=== PATIENT | female | born 1935 | race Caucasian/White ===

== ENCOUNTER 2016-08-26 07:44 | Day surgery (SDC) | payer OTHER ==
[~2016-08-26] VITALS: Ht 160 cm; Wt 67.6 kg
[~2016-08-26 07:44] MED LIST: ACTOS15 MG PO; ALDACTONE100 MG PO; ASCORBIC ACID500 M3 PO; Ascorbic Acid,Ester- PO; BENTYL20 MG PO; BYSTOLIC10 MG PO; CALCIUM CARBON600 M1 PO; CALTRATE 600 +1 EAC1 PO; CALTRATE-600 W1 EAC1 PO; COUMADIN PO; COUMADIN6 MG PO; FEOSOL325 MG PO; GLUCOPHAGE500 MG PO; GLUCOPHAGE850 MG PO; Glucophage PO; LASIX20 MG PO; LASIX40 MG PO; LIPITOR40 MG PO; LUTEIN PO; Lasix PO; Levothroid,Synthroid PO; MARTINIC1 EACH PO; NORVASC10 MG PO; NORVASC5 MG PO; OCCUVITE PO; OCUVITE LUTEIN1 EACH PO; OCUVITE1 TABLET PO; PYRIDOXINE,VITA50 MG PO; RANITIDINE HCL150 MG PO; SYNTHROID125 MCG PO; THERAGRAN1 TABLET PO; TRADJENTA5 MG PO; TUMS500 MG PO; TYLENOL EXTRA500 MG PO; VITAMIN B-122500 MCG SL; VITAMIN B-650 MG PO; VITAMIN B12 PO; VITAMIN D1000 INTUN PO; VITAMIN D31000 UNI2 PO; VITAMIN E400 UNIT PO; Vitamin-E PO; WARFARIN PO; WARFARIN SODIUM1 MG PO; ZESTRIL20 MG PO; Zestril,Prinivil PO; Zocor PO
[2016-08-26 09:21] LABS: POINT-OF-CARE METER ID UU14174212
[2016-08-26 09:27] VITALS: BP 163/72
[2016-08-26 09:32] LABS: INTER. NORMALIZED RATIO 2.8
[2016-08-26 12:36] LABS: POINT-OF-CARE METER ID UU13113675
[2016-08-26 13:33] VITALS: BP 152/75
[2016-08-26 14:30] VITALS: BP 172/72
== END 2016-08-26 14:43 | disposition home or self-care (01) ==
LOC: SDC 07:44
PROVIDERS: Ophthalmology
PROC: 08B43ZZ Excision of Right Vitreous, Percutaneous Approach (ICD-10-PCS; principal; 2016-08-26)
DX: H43.11 Vitreous hemorrhage, right eye (principal); H35.61 Retinal hemorrhage, right eye; T45.515A Adverse effect of anticoagulants, initial encounter; J44.9 Chronic obstructive pulmonary disease, unspecified; I51.7 Cardiomegaly; Z95.0 Presence of cardiac pacemaker; I49.5 Sick sinus syndrome; I48.0 Paroxysmal atrial fibrillation; I10 Essential (primary) hypertension; I65.29 Occlusion and stenosis of unspecified carotid artery; E78.5 Hyperlipidemia, unspecified; E11.9 Type 2 diabetes mellitus without complications; M19.90 Unspecified osteoarthritis, unspecified site; Z85.3 Personal history of malignant neoplasm of breast; Z79.01 Long term (current) use of anticoagulants
CPT/HCPCS: 71020; 82948; 85610; J0690; J0713; J2795; J3010; J3300

== ENCOUNTER 2017-01-22 02:58 | Inpatient (IN) | payer OTHER ==
[~2017-01-22] VITALS: Ht 160 cm; Wt 68.1 kg
[~2017-01-22 02:58] MED LIST changes: +COUMADIN2 MG PO
[2017-01-22 06:38] LABS: HEMATOCRIT 31.1 % (36.0-46.0); MCH 29.4 PG (29.0-34.0); MCHC 32.5 G/DL (30.0-36.0); MCV 90.7 FL (83-99); MEAN PLAT.VOLUME 10.4 uM^3 (9.5-12.4); PLATELET COUNT 129 K/uL (156-360); RBC DIS.WIDTH-CV 16.2 % (11.8-14.6); RBC DIS.WIDTH-SD 53.3 % (39-53); RED BLOOD COUNT 3.43 M/uL (3.80-5.20); WHITE BLOOD COUNT 5.1 K/uL (4.1-10.2)
[2017-01-22 06:51] LABS: INTER. NORMALIZED RATIO 2.9; PROTHROMBIN TIME 33.6 SEC (10.2-12.9)
[2017-01-22 07:06] VITALS: BP 146/80
[2017-01-22 07:12] LABS: ALKALINE PHOSPHATASE 103 IU/L (3-129); ANION GAP 12 MEQ/L (2-14); CHLORIDE 101 MEQ/L (99-109); DIRECT BILIRUBIN 0.2 mg/dL (0.0-0.3); GFR ESTIMATE (CALCULATED) 20 mL/min/; GLUCOSE 133 mg/dL (70-99); MAGNESIUM 2.1 mg/dl (1.3-2.7); POTASSIUM 4.6 MEQ/L (3.7-5.4); SAMPLE HEMOLYSIS CHECK 0; SAMPLE ICTERIC CHECK 0; SAMPLE LIPEMIA CHECK 0; SODIUM 135 MEQ/L (136-147); UREA NITROGEN (BUN) 72 mg/dL (9-23)
[2017-01-22 07:48] VITALS: BP 145/66
[2017-01-22] MEDS ORDERED: COUMADIN2 MG PO (11:56)
[2017-01-22 12:00] VITALS: BP 120/65
[2017-01-22] MEDS ORDERED: FERROUS SULFAT325 MG PO (12:03)
[2017-01-22] MEDS ORDERED: PANTOPRAZOLE SO40 MG PO (12:04)
[2017-01-22] MEDS ORDERED: LACTULOSE10 GM/151 PO (12:05)
[2017-01-22 12:50] LABS: POINT-OF-CARE METER ID UU13113717
[2017-01-22 16:05] VITALS: BP 139/65
[2017-01-22 17:23] LABS: POINT-OF-CARE METER ID UU13113717
[2017-01-22 19:28] VITALS: BP 128/71
[2017-01-22 23:24] VITALS: BP 135/64
[2017-01-23 03:45] VITALS: BP 134/69
[2017-01-23 06:31] LABS: HEMATOCRIT 28.3 % (36.0-46.0); MCH 28.3 PG (29.0-34.0); MCHC 31.4 G/DL (30.0-36.0); MCV 90.1 FL (83-99); MEAN PLAT.VOLUME 10.8 uM^3 (9.5-12.4); PLATELET COUNT 109 K/uL (156-360); RBC DIS.WIDTH-SD 52.5 % (39-53); RED BLOOD COUNT 3.14 M/uL (3.80-5.20); WHITE BLOOD COUNT 4.7 K/uL (4.1-10.2)
[2017-01-23 06:42] LABS: INTER. NORMALIZED RATIO 2.6; PROTHROMBIN TIME 29.4 SEC (10.2-12.9)
[2017-01-23 06:45] LABS: PTT 39.3 SEC (25-37)
[2017-01-23 06:56] LABS: ALKALINE PHOSPHATASE 78 IU/L (3-129); ANION GAP 11 MEQ/L (2-14); CHLORIDE 102 MEQ/L (99-109); GFR ESTIMATE (CALCULATED) 20 mL/min/; GLUCOSE 132 mg/dL (70-99); POTASSIUM 4.3 MEQ/L (3.7-5.4); SAMPLE HEMOLYSIS CHECK 0; SAMPLE ICTERIC CHECK 0; SAMPLE LIPEMIA CHECK 0; SODIUM 134 MEQ/L (136-147); UREA NITROGEN (BUN) 71 mg/dL (9-23)
[2017-01-23 06:58] LABS: ANION GAP 11 MEQ/L (2-14); CHLORIDE 102 MEQ/L (99-109); GFR ESTIMATE (CALCULATED) 20 mL/min/; GLUCOSE 135 mg/dL (70-99); POTASSIUM 4.2 MEQ/L (3.7-5.4); SAMPLE HEMOLYSIS CHECK 0; SAMPLE ICTERIC CHECK 0; SAMPLE LIPEMIA CHECK 0; SODIUM 133 MEQ/L (136-147); UREA NITROGEN (BUN) 75 mg/dL (9-23)
[2017-01-23 07:47] LABS: POINT-OF-CARE METER ID UU13113717
[2017-01-23 07:53] VITALS: BP 120/56
[2017-01-23 11:21] VITALS: BP 118/59
[2017-01-23 12:11] LABS: POINT-OF-CARE METER ID UU14188625
[2017-01-23 15:38] VITALS: BP 125/66
[2017-01-23 17:43] LABS: POINT-OF-CARE METER ID UU14174225
[2017-01-23 19:00] LABS: ADD MIUA? NO; BILIRUBIN NEGATIVE; BLOOD NEGATIVE; COLOR STRAW ((YELLOW)); GLUCOSE (STRIP) NEGATIVE; KETONES NEGATIVE; LEUKOCYTES NEGATIVE; NITRITE NEGATIVE; PROTEIN (STRIP) NEGATIVE; SPECIFIC GRAVITY 1.005 (1.000-1.030); UROBILINOGEN 0.2 MG/DL (0.2-1.0)
[2017-01-23 19:34] VITALS: BP 118/60
[2017-01-23 20:52] LABS: POINT-OF-CARE METER ID UU14188625
[2017-01-23 23:47] VITALS: BP 125/58
[2017-01-24] VITALS (7 sets, daily range): BP systolic 105–131; BP diastolic 56–86
[2017-01-24 05:59] LABS: INTER. NORMALIZED RATIO 2.2; PROTHROMBIN TIME 25.4 SEC (10.2-12.9)
[2017-01-24 06:04] LABS: HEMATOCRIT 27.6 % (36.0-46.0); MCH 28.6 PG (29.0-34.0); MCHC 31.9 G/DL (30.0-36.0); MCV 89.6 FL (83-99); MEAN PLAT.VOLUME 9.9 uM^3 (9.5-12.4); PLATELET COUNT 118 K/uL (156-360); RBC DIS.WIDTH-CV 16.1 % (11.8-14.6); RBC DIS.WIDTH-SD 52.5 % (39-53); RED BLOOD COUNT 3.08 M/uL (3.80-5.20); WHITE BLOOD COUNT 4.4 K/uL (4.1-10.2)
[2017-01-24 06:40] LABS: ANION GAP 11 MEQ/L (2-14); CHLORIDE 102 MEQ/L (99-109); GFR ESTIMATE (CALCULATED) 20 mL/min/; GLUCOSE 126 mg/dL (70-99); IRON 32 MCG/DL (35-150); POTASSIUM 4.3 MEQ/L (3.7-5.4); SAMPLE HEMOLYSIS CHECK 0; SAMPLE ICTERIC CHECK 0; SAMPLE LIPEMIA CHECK 0; SODIUM 134 MEQ/L (136-147); UREA NITROGEN (BUN) 72 mg/dL (9-23)
[2017-01-24 06:57] LABS: URIC ACID 7.8 mg/dL (3.1-9.2)
[2017-01-24 07:34] LABS: POINT-OF-CARE METER ID UU14174225
[2017-01-24 11:33] LABS: POINT-OF-CARE METER ID UU13113717
[2017-01-24 16:49] LABS: POINT-OF-CARE METER ID UU14174225
[2017-01-25 04:05] VITALS: BP 140/66
[2017-01-25 06:00] LABS: EOSINOPHIL (%) 7.6 % (0-5); EOSINOPHIL COUNT 0.4 K/uL (0-0.3); HEMATOCRIT 29.4 % (36.0-46.0); IMMATURE GRANULOCYTE (%) 0.6 % (0.0-0.7); INSTRUMENT ABS NEUTROPHIL CT 3.5 K/uL; LYMPHOCYTE COUNT 0.3 K/uL (1.0-2.8); MCH 28.7 PG (29.0-34.0); MCV 89.6 FL (83-99); MEAN PLAT.VOLUME 10.4 uM^3 (9.5-12.4); MONOCYTE (%) 12.2 % (3-12); MONOCYTE COUNT 0.6 K/uL (0-0.8); NEUTROPHIL (%) 73.9 % (45-76); NEUTROPHIL COUNT 3.5 K/uL (1.8-6.4); PLATELET COUNT 129 K/uL (156-360); RBC DIS.WIDTH-CV 16.2 % (11.8-14.6); RBC DIS.WIDTH-SD 52.8 % (39-53); RED BLOOD COUNT 3.28 M/uL (3.80-5.20); WHITE BLOOD COUNT 4.8 K/uL (4.1-10.2)
[2017-01-25 06:19] LABS: INTER. NORMALIZED RATIO 1.9; PROTHROMBIN TIME 21.7 SEC (10.2-12.9)
[2017-01-25 06:26] LABS: ANION GAP 12 MEQ/L (2-14); CHLORIDE 102 MEQ/L (99-109); GFR ESTIMATE (CALCULATED) 21 mL/min/; GLUCOSE 130 mg/dL (70-99); POTASSIUM 4.5 MEQ/L (3.7-5.4); SAMPLE HEMOLYSIS CHECK 0; SAMPLE ICTERIC CHECK 0; SAMPLE LIPEMIA CHECK 0; SODIUM 135 MEQ/L (136-147); UREA NITROGEN (BUN) 82 mg/dL (9-23)
[2017-01-25 07:40] VITALS: BP 127/59
[2017-01-25 10:52] LABS: TYPE OF FLUID PARACENTESIS
[2017-01-25 11:29] LABS: BODY FLUID EOSINOPHILS 0 % (0-25); BODY FLUID RBC'S 2000 /MM^3 (0-100); BODY FLUID WBC'S 226 /MM^3 (0-500); MONONUCLEAR WBC'S 47 %; POLYNUCLEAR WBC'S 53 % (0-25)
[2017-01-25 11:39] VITALS: BP 138/65
[2017-01-25 11:53] LABS: POINT-OF-CARE METER ID UU14174225
[2017-01-25 11:54] LABS: BODY FLUID LDH 107 IU/L
[2017-01-25 15:19] VITALS: BP 113/58
[2017-01-25 20:12] VITALS: BP 123/45
[2017-01-25 23:57] VITALS: BP 124/46
[2017-01-26 03:43] VITALS: BP 117/48
[2017-01-26 06:47] LABS: EOSINOPHIL (%) 8.2 % (0-5); EOSINOPHIL COUNT 0.4 K/uL (0-0.3); HEMATOCRIT 28.1 % (36.0-46.0); IMMATURE GRANULOCYTE (%) 0.4 % (0.0-0.7); INSTRUMENT ABS NEUTROPHIL CT 3.4 K/uL; LYMPHOCYTE COUNT 0.3 K/uL (1.0-2.8); MCH 30.1 PG (29.0-34.0); MCHC 33.5 G/DL (30.0-36.0); MCV 90.1 FL (83-99); MEAN PLAT.VOLUME 10.2 uM^3 (9.5-12.4); MONOCYTE (%) 11.4 % (3-12); MONOCYTE COUNT 0.5 K/uL (0-0.8); NEUTROPHIL (%) 72.9 % (45-76); NEUTROPHIL COUNT 3.4 K/uL (1.8-6.4); PLATELET COUNT 119 K/uL (156-360); RBC DIS.WIDTH-CV 16.5 % (11.8-14.6); RBC DIS.WIDTH-SD 53.5 % (39-53); RED BLOOD COUNT 3.12 M/uL (3.80-5.20); WHITE BLOOD COUNT 4.7 K/uL (4.1-10.2)
[2017-01-26 07:07] LABS: INTER. NORMALIZED RATIO 1.7; PROTHROMBIN TIME 19.5 SEC (10.2-12.9)
[2017-01-26 07:12] LABS: ANION GAP 12 MEQ/L (2-14); CHLORIDE 103 MEQ/L (99-109); GFR ESTIMATE (CALCULATED) 20 mL/min/; GLUCOSE 125 mg/dL (70-99); POTASSIUM 4.7 MEQ/L (3.7-5.4); SAMPLE HEMOLYSIS CHECK 0; SAMPLE ICTERIC CHECK 0; SAMPLE LIPEMIA CHECK 0; SODIUM 137 MEQ/L (136-147); UREA NITROGEN (BUN) 77 mg/dL (9-23)
[2017-01-26 07:45] VITALS: BP 121/63
[2017-01-26 11:59] VITALS: BP 125/60
[2017-01-26] MEDS ORDERED: SPIRONOLACTONE50 MG PO (13:34)
[2017-01-26] MEDS ORDERED: BUMETANIDE1 MG PO (13:42)
[2017-01-27 23:57] LABS: BODY FLUID PH 8.1 (())
== END 2017-01-26 15:16 | disposition home health service (06) | DRG 291 ==
LOC: EME 02:58 → EDOF 05:04 → ENRESERV 05:07 → 5SOUTH 06:11
PROVIDERS: Hospitalist; Internal Medicine; Internal Medicine Nephrology
PROC: 0W9G3ZZ Drainage of Peritoneal Cavity, Percutaneous Approach (ICD-10-PCS; principal; 2017-01-25)
DX: I13.0 Hypertensive heart and chronic kidney disease with heart failure and stage 1 through stage 4 chronic kidney disease, or unspecified chronic kidney disease (principal); N17.9 Acute kidney failure, unspecified; R18.8 Other ascites; I27.2 Other secondary pulmonary hypertension; E11.22 Type 2 diabetes mellitus with diabetic chronic kidney disease; E87.1 Hypo-osmolality and hyponatremia; I49.5 Sick sinus syndrome; N18.3 Chronic kidney disease, stage 3 (moderate); I50.31 Acute diastolic (congestive) heart failure; E03.9 Hypothyroidism, unspecified; E78.2 Mixed hyperlipidemia; D63.1 Anemia in chronic kidney disease; K76.1 Chronic passive congestion of liver; I48.91 Unspecified atrial fibrillation; Z79.01 Long term (current) use of anticoagulants; Z95.0 Presence of cardiac pacemaker; Z79.4 Long term (current) use of insulin; Z79.899 Other long term (current) drug therapy; Z79.84 Long term (current) use of oral hypoglycemic drugs; Z85.3 Personal history of malignant neoplasm of breast; H35.30 Unspecified macular degeneration; K58.9 Irritable bowel syndrome, unspecified; I08.3 Combined rheumatic disorders of mitral, aortic and tricuspid valves; Z90.12 Acquired absence of left breast and nipple; K74.60 Unspecified cirrhosis of liver; Z83.3 Family history of diabetes mellitus; E86.9 Volume depletion, unspecified
CPT/HCPCS: 49083; 80048; 80053; 80069; 80076; 81003; 82570; 82945; 82948; 83540; 83615 91; 83735; 83986 90; 84100; 84156; 84157; 84300; 84466; 84550; 85025; 85027; 85610; 85730; 87070; 87075; 87205; 88108; 88305; 89051; 99281; 99285; J0696; J0881; J1815; J1940; J7050; P9047

== ENCOUNTER 2017-02-09 10:46 | Inpatient (IN) | payer OTHER ==
[~2017-02-09] VITALS: Ht 160 cm; Wt 67.1 kg
[~2017-02-09 10:46] MED LIST changes: +BUMETANIDE1 MG PO; +FERROUS SULFAT325 MG PO; +LACTULOSE10 GM/151 PO; +PANTOPRAZOLE SO40 MG PO; +SPIRONOLACTONE50 MG PO
[2017-02-09 12:05] LABS: EOSINOPHIL COUNT 0.2 K/uL (0-0.3); HEMATOCRIT 32.7 % (36.0-46.0); IMMATURE GRANULOCYTE (%) 0.4 % (0.0-0.7); INSTRUMENT ABS NEUTROPHIL CT 4.2 K/uL; LYMPHOCYTE COUNT 0.3 K/uL (1.0-2.8); MCHC 32.4 G/DL (30.0-36.0); MCV 89.6 FL (83-99); MEAN PLAT.VOLUME 10.1 uM^3 (9.5-12.4); MONOCYTE (%) 8.5 % (3-12); MONOCYTE COUNT 0.4 K/uL (0-0.8); NEUTROPHIL COUNT 4.2 K/uL (1.8-6.4); PLATELET COUNT 121 K/uL (156-360); RBC DIS.WIDTH-CV 16.3 % (11.8-14.6); RBC DIS.WIDTH-SD 52.8 % (39-53); RED BLOOD COUNT 3.65 M/uL (3.80-5.20); WHITE BLOOD COUNT 5.1 K/uL (4.1-10.2)
[2017-02-09 12:12] LABS: INTER. NORMALIZED RATIO 1.9; PROTHROMBIN TIME 21.4 SEC (10.2-12.9)
[2017-02-09 12:14] LABS: PTT 36.5 SEC (25-37)
[2017-02-09 12:16] LABS: CHLORIDE 95 mEq/L (99-109); POTASSIUM 4.8 mEq/L (3.7-5.4); SODIUM 135 mEq/L (136-147)
[2017-02-09 12:18] LABS: GLUCOSE 125 mg/dL (70-99)
[2017-02-09 12:19] LABS: ANION GAP 15 MEQ/L (2-14)
[2017-02-09 12:22] LABS: GFR ESTIMATE (CALCULATED) 13 mL/min/
[2017-02-09 12:28] LABS: TROP-I INTERPRETATION NEGATIVE; TROPONIN-I 0.03 ng/mL (0.0-0.30); UREA NITROGEN (BUN) 115 mg/dL (9-23)
[2017-02-09] MEDS ORDERED: BUMEX1 MG PO (13:27)
[2017-02-09 15:45] VITALS: BP 147/66
[2017-02-09 18:05] LABS: POINT-OF-CARE METER ID UU13113803; POINT-OF-CARE USER ID NUTSLF44
[2017-02-09 18:22] LABS: TROP-I INTERPRETATION NEGATIVE; TROPONIN-I 0.03 ng/mL (0.0-0.30)
[2017-02-09 19:03] VITALS: BP 128/59
[2017-02-09 20:55] LABS: POINT-OF-CARE METER ID UU13113781
[2017-02-09 23:22] VITALS: BP 122/58
[2017-02-10 01:00] LABS: TROP-I INTERPRETATION NEGATIVE; TROPONIN-I 0.02 ng/mL (0.0-0.30)
[2017-02-10 05:26] VITALS: BP 124/59
[2017-02-10 06:37] LABS: INTER. NORMALIZED RATIO 1.8; PROTHROMBIN TIME 20.7 SEC (10.2-12.9)
[2017-02-10 06:44] VITALS: BP 117/56
[2017-02-10 06:47] LABS: ANION GAP 11 MEQ/L (2-14); CHLORIDE 99 MEQ/L (99-109); GFR ESTIMATE (CALCULATED) 17 mL/min/; GLUCOSE 101 mg/dL (70-99); POTASSIUM 4.9 MEQ/L (3.7-5.4); SAMPLE HEMOLYSIS CHECK 0; SAMPLE ICTERIC CHECK 0; SAMPLE LIPEMIA CHECK 0; SODIUM 136 MEQ/L (136-147); UREA NITROGEN (BUN) 98 mg/dL (9-23)
[2017-02-10 08:33] LABS: POINT-OF-CARE METER ID UU13113698
[2017-02-10 11:45] VITALS: BP 110/54
[2017-02-10 15:45] VITALS: BP 133/68
[2017-02-10 19:05] VITALS: BP 121/58
[2017-02-10 21:04] LABS: POINT-OF-CARE METER ID UU13113781
[2017-02-10 23:32] VITALS: BP 128/61
[2017-02-11 03:25] VITALS: BP 138/65
[2017-02-11 05:32] LABS: EOSINOPHIL (%) 8.6 % (0-5); EOSINOPHIL COUNT 0.4 K/uL (0-0.3); HEMATOCRIT 31.2 % (36.0-46.0); IMMATURE GRANULOCYTE (%) 0.8 % (0.0-0.7); INSTRUMENT ABS NEUTROPHIL CT 3.6 K/uL; LYMPHOCYTE COUNT 0.3 K/uL (1.0-2.8); MCH 30.2 PG (29.0-34.0); MCV 91.5 FL (83-99); MEAN PLAT.VOLUME 10.9 uM^3 (9.5-12.4); MONOCYTE (%) 13.3 % (3-12); MONOCYTE COUNT 0.7 K/uL (0-0.8); NEUTROPHIL (%) 70.5 % (45-76); NEUTROPHIL COUNT 3.6 K/uL (1.8-6.4); PLATELET COUNT 112 K/uL (156-360); RBC DIS.WIDTH-CV 16.9 % (11.8-14.6); RBC DIS.WIDTH-SD 55.8 % (39-53); RED BLOOD COUNT 3.41 M/uL (3.80-5.20); WHITE BLOOD COUNT 5.1 K/uL (4.1-10.2)
[2017-02-11 05:46] LABS: INTER. NORMALIZED RATIO 1.9; PROTHROMBIN TIME 21.7 SEC (10.2-12.9)
[2017-02-11 05:58] LABS: ANION GAP 11 MEQ/L (2-14); CHLORIDE 102 MEQ/L (99-109); GFR ESTIMATE (CALCULATED) 17 mL/min/; GLUCOSE 106 mg/dL (70-99); POTASSIUM 4.5 MEQ/L (3.7-5.4); SAMPLE HEMOLYSIS CHECK 0; SAMPLE ICTERIC CHECK 0; SAMPLE LIPEMIA CHECK 0; SODIUM 136 MEQ/L (136-147); UREA NITROGEN (BUN) 99 mg/dL (9-23)
[2017-02-11 07:34] LABS: POINT-OF-CARE METER ID UU13113803
[2017-02-11 08:06] VITALS: BP 131/56
[2017-02-11 11:33] LABS: POINT-OF-CARE METER ID UU13113803
[2017-02-11 11:36] VITALS: BP 126/52
[2017-02-11] MEDS ORDERED: BUMEX0.5 MG PO (13:07)
[2017-02-11 16:24] LABS: POINT-OF-CARE METER ID UU13113803
== END 2017-02-11 16:30 | disposition home or self-care (01) | DRG 683 ==
LOC: EME 10:46 → EDOF 13:03 → 4EAST 13:03 → ENRESERV 13:05 → 4EAST 15:38
PROVIDERS: Emergency Medicine; Internal Medicine; Internal Medicine Nephrology
DX: N17.9 Acute kidney failure, unspecified (principal); E87.1 Hypo-osmolality and hyponatremia; I13.0 Hypertensive heart and chronic kidney disease with heart failure and stage 1 through stage 4 chronic kidney disease, or unspecified chronic kidney disease; R18.8 Other ascites; I48.91 Unspecified atrial fibrillation; E78.5 Hyperlipidemia, unspecified; E03.9 Hypothyroidism, unspecified; E78.00 Pure hypercholesterolemia, unspecified; I49.5 Sick sinus syndrome; I27.2 Other secondary pulmonary hypertension; N18.4 Chronic kidney disease, stage 4 (severe); K74.60 Unspecified cirrhosis of liver; R07.9 Chest pain, unspecified; I08.3 Combined rheumatic disorders of mitral, aortic and tricuspid valves; E11.22 Type 2 diabetes mellitus with diabetic chronic kidney disease; I50.9 Heart failure, unspecified; K58.9 Irritable bowel syndrome, unspecified; D64.9 Anemia, unspecified; D63.8 Anemia in other chronic diseases classified elsewhere; Z79.01 Long term (current) use of anticoagulants; Z85.3 Personal history of malignant neoplasm of breast; Z95.0 Presence of cardiac pacemaker; Z98.42 Cataract extraction status, left eye
CPT/HCPCS: 71010; 76770; 80048; 82948; 84484; 85025; 85610; 85730; 93005; J1815; J7030

== ENCOUNTER → 2017-05-06 | Outpatient (CLI) | payer OTHER ==
[~2017-05-06] MED LIST changes: +BUMEX0.5 MG PO; +BUMEX1 MG PO
== END | disposition home or self-care (01) ==
LOC: RAD 12:43
PROC: 0W9G3ZZ Drainage of Peritoneal Cavity, Percutaneous Approach (ICD-10-PCS; principal; 2017-05-06)
DX: K74.60 Unspecified cirrhosis of liver (principal); R18.8 Other ascites
CPT/HCPCS: 49083

== ENCOUNTER → 2017-06-17 | Outpatient (CLI) | payer OTHER | END | disposition home or self-care (01) | LOC: RAD 08:15 | PROC: 0W9G3ZZ Drainage of Peritoneal Cavity, Percutaneous Approach (ICD-10-PCS; principal; 2017-06-17) | DX: R18.8 Other ascites (principal) | CPT/HCPCS: 49083 ==

== ENCOUNTER → 2017-08-25 | Outpatient (CLI) | payer OTHER ==
[~2017-08-25] MED LIST changes: +ASPIRIN81 M2 PO; +COREG6.25 M1 PO; +NITROGLYCERIN0.4 MG SL
== END | disposition home or self-care (01) ==
LOC: RAD 08:11
PROC: 0W9G3ZZ Drainage of Peritoneal Cavity, Percutaneous Approach (ICD-10-PCS; principal; 2017-08-25)
DX: R18.8 Other ascites (principal)
CPT/HCPCS: 49083

== ENCOUNTER → 2017-09-22 | Outpatient (CLI) | payer OTHER | END | disposition home or self-care (01) | LOC: RAD 09-09 08:30 | PROC: 0W9G3ZZ Drainage of Peritoneal Cavity, Percutaneous Approach (ICD-10-PCS; principal; 2017-09-22) | DX: R18.8 Other ascites (principal) | CPT/HCPCS: 49083 ==

== ENCOUNTER → 2017-10-13 | Outpatient (CLI) | payer OTHER | END | disposition home or self-care (01) | LOC: RAD 13:19 | PROC: 0W9G3ZZ Drainage of Peritoneal Cavity, Percutaneous Approach (ICD-10-PCS; principal; 2017-10-13) | DX: R18.8 Other ascites (principal) | CPT/HCPCS: 49083 ==

== ENCOUNTER → 2017-11-01 | Outpatient (CLI) | payer OTHER ==
[~2017-11-01] MED LIST changes: +SYNTHROID150 MCG PO
== END | disposition home or self-care (01) ==
LOC: RAD 08:21
PROC: 0W9G3ZZ Drainage of Peritoneal Cavity, Percutaneous Approach (ICD-10-PCS; principal; 2017-11-01)
DX: R18.8 Other ascites (principal)
CPT/HCPCS: 49083

== ENCOUNTER → 2017-11-16 | Outpatient (CLI) | payer OTHER | END | disposition home or self-care (01) | LOC: RAD 13:16 | PROC: 0W9G3ZZ Drainage of Peritoneal Cavity, Percutaneous Approach (ICD-10-PCS; principal; 2017-11-16) | DX: R18.8 Other ascites (principal) | CPT/HCPCS: 49083 ==

== ENCOUNTER → 2017-11-24 | Outpatient (CLI) | payer OTHER | END | disposition home or self-care (01) | LOC: RAD 10:10 | PROC: 0W9G3ZZ Drainage of Peritoneal Cavity, Percutaneous Approach (ICD-10-PCS; principal; 2017-11-24) | DX: R18.8 Other ascites (principal); K74.60 Unspecified cirrhosis of liver; N18.3 Chronic kidney disease, stage 3 (moderate) | CPT/HCPCS: 49083 ==

== ENCOUNTER → 2017-12-06 | Outpatient (CLI) | payer OTHER ==
[2017-12-06 14:46] LABS: INTER. NORMALIZED RATIO 1.2
== END | disposition home or self-care (01) ==
LOC: RAD 11-30 13:30
PROVIDERS: Radiology Diagnostic Radiology
PROC: 0W9G3ZZ Drainage of Peritoneal Cavity, Percutaneous Approach (ICD-10-PCS; principal; 2017-12-06)
DX: R18.8 Other ascites (principal); K74.60 Unspecified cirrhosis of liver; N18.3 Chronic kidney disease, stage 3 (moderate)
CPT/HCPCS: 49083; 85610; 85730

== ENCOUNTER → 2017-12-20 | Outpatient (CLI) | payer OTHER | END | disposition home or self-care (01) | LOC: RAD 12-07 13:15 | PROC: 0W9G3ZZ Drainage of Peritoneal Cavity, Percutaneous Approach (ICD-10-PCS; principal; 2017-12-20) | DX: R18.8 Other ascites (principal); K74.60 Unspecified cirrhosis of liver; N18.3 Chronic kidney disease, stage 3 (moderate) | CPT/HCPCS: 49083 ==

== ENCOUNTER → 2018-01-04 | Outpatient (CLI) | payer OTHER | END | disposition home or self-care (01) | LOC: RAD 12:59 | PROC: 0W9G3ZZ Drainage of Peritoneal Cavity, Percutaneous Approach (ICD-10-PCS; principal; 2018-01-04) | DX: R18.8 Other ascites (principal); K74.60 Unspecified cirrhosis of liver; N18.3 Chronic kidney disease, stage 3 (moderate) | CPT/HCPCS: 49083 ==

== ENCOUNTER → 2018-01-12 | Outpatient (CLI) | payer OTHER | END | disposition home or self-care (01) | LOC: RAD 13:12 | PROC: 0W9G3ZZ Drainage of Peritoneal Cavity, Percutaneous Approach (ICD-10-PCS; principal; 2018-01-12) | DX: R18.8 Other ascites (principal); K74.60 Unspecified cirrhosis of liver; N18.3 Chronic kidney disease, stage 3 (moderate) | CPT/HCPCS: 49083 ==

== ENCOUNTER → 2018-01-24 | Outpatient (CLI) | payer OTHER | END | disposition home or self-care (01) | LOC: RAD 13:03 | PROC: 0W9G3ZZ Drainage of Peritoneal Cavity, Percutaneous Approach (ICD-10-PCS; principal; 2018-01-24) | DX: R18.8 Other ascites (principal); K74.60 Unspecified cirrhosis of liver; N18.3 Chronic kidney disease, stage 3 (moderate) | CPT/HCPCS: 49083 ==

== ENCOUNTER → 2018-02-02 | Outpatient (CLI) | payer OTHER | END | disposition home or self-care (01) | LOC: RAD 12-14 13:30 | PROC: 0W9G3ZZ Drainage of Peritoneal Cavity, Percutaneous Approach (ICD-10-PCS; principal; 2018-02-02) | DX: R18.8 Other ascites (principal); K74.60 Unspecified cirrhosis of liver; N18.3 Chronic kidney disease, stage 3 (moderate) | CPT/HCPCS: 49083 ==

== ENCOUNTER → 2018-02-10 | Outpatient (CLI) | payer OTHER | END | disposition home or self-care (01) | LOC: RAD 12:45 | PROC: 0W9G3ZZ Drainage of Peritoneal Cavity, Percutaneous Approach (ICD-10-PCS; principal; 2018-02-10) | DX: R18.8 Other ascites (principal); K74.60 Unspecified cirrhosis of liver; N18.3 Chronic kidney disease, stage 3 (moderate) | CPT/HCPCS: 49083 ==

== ENCOUNTER → 2018-02-17 | Outpatient (CLI) | payer OTHER | END | disposition home or self-care (01) | LOC: RAD 02-10 13:15 | PROC: 0W9G3ZZ Drainage of Peritoneal Cavity, Percutaneous Approach (ICD-10-PCS; principal; 2018-02-17) | DX: R18.8 Other ascites (principal); K74.60 Unspecified cirrhosis of liver; N18.3 Chronic kidney disease, stage 3 (moderate) | CPT/HCPCS: 49083 ==